=== PATIENT | female | born 1985 | race Caucasian/White ===

== ENCOUNTER 2022-07-01 13:56 | Emergency (ER) | payer SELFPAY ==
--- NOTE | 2022-07-01 14:08 | ED Physician Documentation ---
PD HPI ABD PAIN - Stated complaint Stated Complaint: R LOWER ABD PX - History obtained from History obtained from: Patient - History of Present Illness Timing - onset: How many days ago (05/30) Timing - duration: Days (05/30) Timing - details: Gradual onset, Still present (AndSteadily worsening and considerably increased overnight into this morning. It is still localized in the right lower quadrant.), Constant, Still present in ED. No: Waxing and waning Quality: Aching, Pain Location: RLQ Radiation: No: Chest, Right flank Improved by: Laying still. No: Eating, Vomiting Worsened by: Moving, Palpation. No: Eating, Breathing Associated symptoms: Nausea, Loss of appetite. No: Fever, Vomiting, Diarrhea, Constipation (last BM small but just yesterday.), Dysuria, Chest pain, Vaginal dc Similar symptoms before: Has not had sx before Recently seen: Not recently seen Review of Systems Constitutional: denies: Fever, Chills, Myalgias Nose: denies: Rhinorrhea / runny nose, Congestion Throat: denies: Sore throat Respiratory: denies: Cough GI: reports: Abdominal Pain, Nausea. denies: Vomiting, Constipation, Diarrhea : denies: Dysuria, Frequency, Discharge Skin: denies: Rash Neurologic: denies: Altered mental status, Headache PD PAST MEDICAL HISTORY - Past Medical History Cardiovascular: None Respiratory: None Endocrine/Autoimmune: None : Other (IUD in place for over 5 years) - Past Surgical History Past Surgical History: No - Present Medications Home Medications: Ambulatory Orders Medication Instructions Recorded Confirmed HYDROcod/ACETAM 5/325 [Aurora 5/325] 1 ea PO Q6H PRN #12 tablet 07/01/22 Naproxen 250 mg PO TID 7 Days #20 tablet 07/01/22 Ondansetron Odt [Zofran] 4 mg TL Q6H PRN #10 tablet 07/01/22 cephALEXin [Keflex] 500 mg PO TID #20 cap 07/01/22 metroNIDAZOLE [Flagyl] 250 mg PO Q8H #20 tablet 07/01/22 - Allergies Allergies/Adverse Reactions: Allergies Allergy/AdvReac Type Severity Reaction Status Date / Time Penicillins AdvReac Unknown Verified 07/01/22 14:26 PD ED PE NORMAL - Vitals Vital signs reviewed: Yes - General General: Alert and oriented X 3, Well developed/nourished, Other (appears uncomfortable due to abd pain RLQ. ) - Neck Neck: Supple, no meningeal sign, No adenopathy - Cardiac Cardiac: RRR, No murmur - Respiratory Respiratory: No respiratory distress, Clear bilaterally - Abdomen Abdomen: Normal bowel sounds, Soft, Non distended, No organomegaly, Other (Localized tenderness in the right lower quadrant with guarding and percussion tenderness. Mild referred tenderness from left lower quadrant to the right. No generalized percussion tenderness.) - Female Female : Deferred - Rectal Rectal: Deferred - Back Back: No CVA TTP - Derm Derm: Normal color, No rash Results - Vitals Vitals: Vital Signs - 24 hr 07/01/22 07/01/22 07/01/22 14:16 14:46 17:00 Temperature 36.8 C Heart Rate 88 64 67 Respiratory 18 18 18 Rate Blood Pressure 157/93 H 128/83 H 134/89 H O2 Saturation 100 99 100 Oxygen O2 Source Room air - Labs Labs: Laboratory Tests 07/01/22 07/01/22 07/01/22 14:42 14:42 14:42 WBC 8.3 RBC 4.34 Hgb 13.5 Hct 40.8 MCV 94.0 MCH 31.1 H MCHC 33.1 RDW 11.9 L Plt Count 200 MPV 11.5 H Neut # (Auto) 5.7 Lymph # (Auto) 1.5 [place] # (Auto) 1.0 Eos # (Auto) 0.1 Baso # (Auto) 0.0 Absolute Nucleated RBC 0.00 Nucleated RBC % 0.0 Sodium 135 Potassium 3.8 Chloride 98 L Carbon Dioxide 26 Anion Gap 11.0 BUN 11 Creatinine 0.6 Estimated GFR (MDRD) 114 Glucose 98 Calcium 9.2 Total Bilirubin 1.0 AST 16 ALT 21 Alkaline Phosphatase 50 Total Protein 7.7 Albumin 4.1 Globulin 3.6 Albumin/Globulin Ratio 1.1 Lipase 30 Serum HCG, Qual NEGATIVE Urine Color Urine Clarity Urine pH Ur Specific [place] Urine Protein Urine Glucose (UA) Urine Ketones Urine Occult Blood Urine Nitrite Urine Bilirubin Urine Urobilinogen Ur Leukocyte Esterase Urine RBC Urine WBC Ur Squamous Epith Cells Urine Bacteria Urine Mucus Ur Microscopic Review Urine Culture Comments 07/01/22 15:25 WBC RBC Hgb Hct MCV MCH MCHC RDW Plt Count MPV Neut # (Auto) Lymph # (Auto) [place] # (Auto) Eos # (Auto) Baso # (Auto) Absolute Nucleated RBC Nucleated RBC % Sodium Potassium Chloride Carbon Dioxide Anion Gap BUN Creatinine Estimated GFR (MDRD) Glucose Calcium Total Bilirubin AST ALT Alkaline Phosphatase Total Protein Albumin Globulin Albumin/Globulin Ratio Lipase Serum HCG, Qual Urine Color YELLOW Urine Clarity HAZY Urine pH 6.0 Ur Specific [place] 1.010 Urine Protein NEGATIVE Urine Glucose (UA) NEGATIVE Urine Ketones TRACE Urine Occult Blood NEGATIVE Urine Nitrite NEGATIVE Urine Bilirubin NEGATIVE Urine Urobilinogen 0.2 (NORMAL) Ur Leukocyte Esterase TRACE H Urine RBC 0-5 Urine WBC 6-10 H Ur Squamous Epith Cells MOD Squamous H Urine Bacteria Moderate H Urine Mucus Few Strands Ur Microscopic Review INDICATED Urine Culture Comments NOT INDICATED - Rads (name of study) abd/pelvic cT Radiology: Prelim report reviewed (cecal diverticulitis without abscess nor perforation. Appendix seen separately and normal. ), EMP read indepedently, See rad report PD Medical Decision Making - ED course Complexity details: reviewed results (There is definite focal area of inflammation RLQ at cecum. Radiology report diagnosis this as cecal diverticulitis and the appendix is seen separately and is normal. ), re- evaluated patient (the patient is more comfortable after meds. Not vomiting. Uncomplicated diverticulitis but with significant inflammation around it, supporting more likely infectious and not just inflammatory. Will rx with antibiotics as well as anti-inflammatories. Patient comfortable with discharge home. ), considered differential (exam very cocnerning for appendicitis. She does not seem too ill though. Can get labs and UA. discussed with patient U/S versus Ct and opted for CT as more likely intra-abdominal process. ), d/w patient Reviewed Lab Results: WBC is in normal range. HCG negative. UA normal. CT showing IUD in place. So does not seem cause. There is definite area of inflammation and swelling of cecal area. No free fluid. Drug Therapy Requiring Monitoring for Toxicity: iv pain meds of toradol and dilaudid. Sfter CT results, also given iv antibiotics to initiate therapy, given the steady worsening of symptoms, i felt it approrpiriate to give antibiotics and pain meds. ED course: she was given IV fluids and meds and was more comfortable regarding the pain. given IV toradol and pain meds without side effects. Departure - Departure Disposition: 01 Home, Self Care Clinical Impression: Cecal diverticulitis Condition: Stable Record reviewed to determine appropriate education?: Yes Instructions: ED Diverticulitis Prescriptions: metroNIDAZOLE [Flagyl] 250 mg PO Q8H #20 tablet cephALEXin [Keflex] 500 mg PO TID #20 cap Naproxen 250 mg PO TID 7 Days #20 tablet HYDROcod/ACETAM 5/325 [Aurora 5/325] 1 ea PO Q6H PRN #12 tablet PRN Reason: Pain Ondansetron Odt [Zofran] 4 mg TL Q6H PRN #10 tablet PRN Reason: Nausea / Vomiting Comments: Your CT scan shows acute diverticulitis of the cecum. The radiologist says your appendix appears normal. We would treat this with oral antibiotics of cephalexin and metronidazole. Also anti-inflammatories of naproxen 3 times daily for a week. Stay well-hydrated. Tylenol if needed for fevers or pain. Add hydrocodone if needed for worse pain. Ondansetron if needed for nausea. I would anticipate improvement over the next several days and resolution over 3 to 5 days or so. Recheck if not improving during that timeframe and return if worse. I sent your prescriptions to the [facility] pharmacy in [place]. I am prescribing a short course of narcotic pain medication for you. These are potentially dangerous and addictive medications that should be used carefully. These medications may constipate you. Take an [id number] stool softener such as docusate twice daily with plenty of water while taking these medications. If you go 24 hours without a bowel movement, take [id number] MiraLAX, per package instructions. Do not drink or drive while taking these medications. If you received narcotic or sedating medications while in the emergency department do not drive for 24 hours. Store this medication in a safe, secure place and out of reach of children. It is a violation of federal law to give or sell this medication to another person or to use in a manner other than prescribed. The ED will not refill narcotic prescriptions, including prescriptions lost or stolen. You can dispose of unwanted medications at the [facility]'s office or at several pharmacies such as [facility]. Discharge Date/Time: 07/01/22 18:00
[2022-07-01] MEDS ORDERED: SODIUM CHLORIDE 0.9% 1,000 ML IV STA (14:24)
[2022-07-01] MEDS ORDERED: KETOROLAC 15 MG/ML VIAL IVP STA (14:24)
[2022-07-01 14:56] LABS: BASOPHILS % (AUTO) 0.5 %; EOSINOPHILS # (AUTO) 0.1 10^3/uL (0.0-0.7); EOSINOPHILS % (AUTO) 1.7 %; HCT - HEMATOCRIT 40.8 % (37.0-47.0); HGB - HEMOGLOBIN 13.5 g/dL (12.0-16.0); LYMPHOCYTES # (AUTO) 1.5 10^3/uL (1.5-3.5); LYMPHOCYTES % (AUTO) 17.5 %; MEAN CORPUSCULAR HEMOGLOBIN 31.1 pg (27.0-31.0); MEAN CORPUSCULAR HGB CONC 33.1 g/dL (32.0-36.0); MEAN PLATELET VOLUME 11.5 fL (7.9-10.8); MONOCYTES % (AUTO) 11.5 %; NEUTROPHILS # (AUTO) 5.7 10^3/uL (1.5-6.6); NEUTROPHILS % (AUTO) 68.7 %; PLT - PLATELET COUNT 200 10^3/uL (130-450); RED BLOOD COUNT 4.34 10^6/uL (4.20-5.40); RED CELL DISTRIBUTION WIDTH 11.9 % (12.0-15.0); WHITE BLOOD COUNT 8.3 x10^3/uL (4.8-10.8)
[2022-07-01 15:13] LABS: ALBUMIN 4.1 g/dL (3.2-5.5); ALBUMIN/GLOBULIN RATIO 1.1 (1.0-2.2); CALCIUM 9.2 mg/dL (8.5-10.3); CREATININE 0.6 mg/dL (0.4-1.0); POTASSIUM 3.8 mmol/L (3.5-5.0); TOTAL PROTEIN 7.7 g/dL (6.7-8.2)
[2022-07-01 15:21] LABS: HCG,QUALITATIVE BLOOD NEGATIVE
[2022-07-01 15:31] LABS: BILIRUBIN,URINE NEGATIVE (NEGATIVE); GLUCOSE, URINE (UA) NEGATIVE (NEGATIVE); KETONES,URINE (UA) TRACE mg/dL (NEGATIVE); LEUKOCYTE ESTERASE, URINE TRACE (NEGATIVE); NITRITE,URINE NEGATIVE (NEGATIVE); OCCULT BLOOD,URINE NEGATIVE (NEGATIVE); PROTEIN,URINE NEGATIVE (NEGATIVE); UROBILINOGEN,URINE 0.2 (NORMAL) E.U./dL (NORMAL)
[2022-07-01 15:32] LABS: CLARITY,URINE HAZY (CLEAR)
[2022-07-01 15:45] LABS: BACTERIA,URINE Moderate /HPF (None Seen); MUCUS,URINE Few Strands; RBC,URINE 0-5 /HPF (0-5); SQUAMOUS EPITHELIAL CELL,UR MOD Squamous (<= Few)
[2022-07-01] MEDS ORDERED: iohexoL-300 100 ML VIAL ONE (16:10)
--- NOTE | 2022-07-01 16:19 | CT Report ---
PROCEDURE: ABDOMEN/PELVIS W INDICATIONS: RLQ x 2 days, worsening CONTRAST: 100ml omni 300 TECHNIQUE: After the administration of IV contrast, 5 mm thick sections acquired from the diaphragms to the symp hysis. 5 mm thick coronal and sagittal reformats were acquired. For radiation dose reduction, the f ollowing was used: automated exposure control, adjustment of mA and/or kV according to patient size. COMPARISON: None. FINDINGS: Image quality: Excellent. ABDOMEN: Lung bases: Lung bases are clear. Heart size is normal. Solid organs: Liver is mildly enlarged measuring 21.0 cm in steatosis. The spleen is normal in size and enhancement. Gallbladder is unremarkable Biliary system is non dilated. Pancreas enhances norm ally. No adrenal nodules. Kidneys demonstrate normal size and enhancement, without hydronephrosis. Peritoneum and bowel: Bowel loops are nonobstructed. There is marked thickening and inflammatory nicholas nge identified within the cecum. Scattered diverticula are present. Appendix is normal. No free fluid or air. Nodes and vessels: No retroperitoneal or mesenteric adenopathy by size criteria. Aorta and inferior vena cava are normal in size. Miscellaneous: No ventral hernias. PELVIS: Genitourinary: Bladder wall thickness is normal. IUD is incidentally noted. Miscellaneous: No inguinal hernias or adenopathy. Bones: No suspicious bony lesions. No vertebral body compression fractures. IMPRESSION: Marked inflammatory change with thickening and diverticula in the cecum most suggestive of focal coli tis secondary to diverticulitis. Appendix is normal. Reviewed by: Teri Jones MD on 07/01/2022 4:17 PM PST Approved by: Teri Jones MD on 07/01/2022 4:17 PM PST Station ID: [id number]
[2022-07-01] MEDS ORDERED: cefTRIAXone 1 GM VIAL IVP STA (16:45)
[2022-07-01] MEDS ORDERED: HYDROmorphone 0.5 MG/0.5 ML SYRINGE IVP STA (16:46)
[2022-07-01] MEDS ORDERED: metroNIDAZOLE 250 MG TABLET PO STA (16:46)
[2022-07-01 17:01] VITALS: BP 134/89
[2022-07-01] MEDS ORDERED: iohexoL-300 100 ML VIAL IVP ONE (19:27)
== END 2022-07-01 18:00 | disposition home or self-care (01) ==
LOC: ED 13:56
DX: K57.32 Diverticulitis of large intestine without perforation or abscess without bleeding (principal)
CPT/HCPCS: 36415; 74177; 80053; 81001; 83690; 84703; 85025; 96361; 96374; 96375; 99284; 99285; A9270; J1170; Q9967; 81003; 87086

== ENCOUNTER 2022-07-14 20:36 | Emergency (ER) | payer SELFPAY ==
[2022-07-14] MEDS ORDERED: SODIUM CHLORIDE 0.9% 1,000 ML IV STA (21:10)
[2022-07-14] MEDS ORDERED: HYDROmorphone 1 MG/ML CARPUJECT IVP STA (21:10)
--- NOTE | 2022-07-14 21:14 | ED Physician Documentation ---
PD HPI ABD PAIN - Stated complaint Stated Complaint: ABD PX - Chief complaint Chief Complaint: Abd Pain - History obtained from History obtained from: Patient - Additional information Additional information: The patient comes to the emergency department chief complaint of right lower quadrant abdominal pain that started suddenly this afternoon. She states that she had been feeling better for a number of days after being diagnosed with diverticulitis on July 01. However, she had realized after completing her course of Keflex that after probably couple of days of taking her metronidazole, she had accidentally started taking naproxen instead of the metronidazole. She did not realize until the end of the course of Keflex that the other bottle actually said naproxen and not metronidazole. She was able to find her metronidazole and took 3 doses today. She states that she has not been nauseated or vomiting. No change in her stools other than she did notice the somewhat dark stool today. She denies any upper abdominal pain. No fevers or chills. No urinary symptoms. She has no history of kidney stones. No surgical history to the abdomen. She states she is not sexually active and is quite sure she is not . She denies any other complaints at this time. She does note that movement causes the area to hurt more. She states her last dose of naproxen was several days ago. PD PAST MEDICAL HISTORY - Past Medical History Cardiovascular: None Respiratory: None Endocrine/Autoimmune: None : Other (IUD in place for over 5 years) - Past Surgical History Past Surgical History: No - Present Medications Home Medications: Ambulatory Orders Medication Instructions Recorded Confirmed HYDROcod/ACETAM 5/325 [[place] 5/325] 1 ea PO Q6H PRN #12 tablet 07/01/22 Naproxen 250 mg PO TID 7 Days #20 tablet 07/01/22 Ondansetron Odt [Zofran] 4 mg TL Q6H PRN #10 tablet 07/01/22 cephALEXin [Keflex] 500 mg PO TID #20 cap 07/01/22 metroNIDAZOLE [Flagyl] 250 mg PO Q8H #20 tablet 07/01/22 Ondansetron Odt [Zofran] 4 mg TL Q6H PRN #10 tablet 07/15/22 Oxycodone HCl/Acetaminophen 1 - 2 each PO Q4HR PRN #20 tablet 07/15/22 [Percocet 5-325 mg Tablet] levoFLOXacin [Levaquin] 500 mg PO QD #28 tablet 07/15/22 metroNIDAZOLE [Flagyl] 500 mg PO BID 7 Days #14 tablet 07/15/22 polyethylene glycoL 3350 [Miralax] 17 gm PO DAILY PRN #1 each 07/15/22 - Allergies Allergies/Adverse Reactions: Allergies Allergy/AdvReac Type Severity Reaction Status Date / Time Penicillins AdvReac Unknown Verified 07/01/22 14:26 - Social History Does the pt smoke?: No Smoking Status: Never smoker - POLST Patient has POLST: No PD ED PE NORMAL - Vitals Vital signs reviewed: Yes - General General: Alert and oriented X 3, No acute distress, Well developed/nourished - HEENT HEENT: Atraumatic, PERRL, EOMI, Moist mucous membranes - Neck Neck: Supple, no meningeal sign - Cardiac Cardiac: RRR, No murmur, Strong equal pulses - Respiratory Respiratory: No respiratory distress, Clear bilaterally - Abdomen Abdomen: Soft, Non distended, Other (Moderate right lower quadrant tenderness and mild right upper quadrant and left lower quadrant tenderness. No rebound or guarding.) - Derm Derm: Normal color, Warm and dry, No rash - Extremities Extremities: No deformity, No edema - Neuro Neuro: Alert and oriented X 3 - Psych Psych: Normal mood, Normal affect Results - Vitals Vitals: Vital Signs - 24 hr 07/14/22 07/14/22 07/14/22 20:43 21:00 23:00 Temperature 36.8 C Heart Rate 96 77 70 Respiratory 17 15 16 Rate Blood Pressure 131/83 H 133/84 H 135/83 H O2 Saturation 96 98 99 07/15/22 00:41 Temperature 36.5 C Heart Rate 88 Respiratory 15 Rate Blood Pressure 131/77 H O2 Saturation 95 Oxygen O2 Source Room air - Labs Labs: Laboratory Tests 07/14/22 07/14/22 07/14/22 21:19 21:19 21:19 WBC 22.3 H RBC 4.70 Hgb 14.5 Hct 42.8 MCV 91.1 MCH 30.9 MCHC 33.9 RDW 12.5 Plt Count 346 MPV 9.8 Neut # (Auto) Not Reportable Lymph # (Auto) Not Reportable [place] # (Auto) Not Reportable Eos # (Auto) Not Reportable Baso # (Auto) Not Reportable Absolute Nucleated RBC Not Reportable Total Counted 100 Band Neuts % (Manual) 8 Abnorm Lymph % (Manual) 0 Nucleated RBC % Not Reportable Neutrophils # (Manual) 19.8 H Lymphocytes # (Manual) 1.6 Monocytes # (Manual) 0.7 Eosinophils # (Manual) 0.2 Basophils # (Manual) 0.0 Differential Comment MANUAL DIFFERENTIAL WBC Morphology 1+ TOXIC GRANULATION Platelet Estimate NORMAL (130-450,000) RBC Morph Micro Appear NORMAL APPEARANCE Sodium 130 L Potassium 3.5 Chloride 95 L Carbon Dioxide 21 Anion Gap 14.0 H BUN 27 H Creatinine 0.6 Estimated GFR (MDRD) 114 Glucose 94 Calcium 9.0 Total Bilirubin 0.6 AST 24 ALT 68 H Alkaline Phosphatase 49 Total Protein 7.8 Albumin 4.1 Globulin 3.7 Albumin/Globulin Ratio 1.1 Lipase 30 Serum HCG, Qual NEGATIVE Urine Color Urine Clarity Urine pH Ur Specific [place] Urine Protein Urine Glucose (UA) Urine Ketones Urine Occult Blood Urine Nitrite Urine Bilirubin Urine Urobilinogen Ur Leukocyte Esterase Ur Microscopic Review Urine Culture Comments 07/14/22 21:57 WBC RBC Hgb Hct MCV MCH MCHC RDW Plt Count MPV Neut # (Auto) Lymph # (Auto) [place] # (Auto) Eos # (Auto) Baso # (Auto) Absolute Nucleated RBC Total Counted Band Neuts % (Manual) Abnorm Lymph % (Manual) Nucleated RBC % Neutrophils # (Manual) Lymphocytes # (Manual) Monocytes # (Manual) Eosinophils # (Manual) Basophils # (Manual) Differential Comment WBC Morphology Platelet Estimate RBC Morph Micro Appear Sodium Potassium Chloride Carbon Dioxide Anion Gap BUN Creatinine Estimated GFR (MDRD) Glucose Calcium Total Bilirubin AST ALT Alkaline Phosphatase Total Protein Albumin Globulin Albumin/Globulin Ratio Lipase Serum HCG, Qual Urine Color YELLOW Urine Clarity CLEAR Urine pH 6.0 Ur Specific [place] 1.020 Urine Protein NEGATIVE Urine Glucose (UA) NEGATIVE Urine Ketones 40 H Urine Occult Blood NEGATIVE Urine Nitrite NEGATIVE Urine Bilirubin NEGATIVE Urine Urobilinogen 0.2 (NORMAL) Ur Leukocyte Esterase NEGATIVE Ur Microscopic Review NOT INDICATED Urine Culture Comments NOT INDICATED - Rads (name of study) CT abdomen pelvis Radiology: Final report received, See rad report (Inflammation in right lower quadrant consistent with diverticulitis. Very small, contained perforation noted.) PD Medical Decision Making - ED course Complexity details: reviewed results, re-evaluated patient, considered differential, d/w patient ED course: The patient was treated symptomatically with IV fluids and a dose of Dilaudid, and worked up with laboratory studies and ultimately, and CT scan of the abdomen and pelvis. Labs included a CBC, ER abdominal panel, test, and urinalysis, all of which were ordered and reviewed by me. The CBC showed a significantly elevated white blood cell count at 22.8. The remainder of the patient's labs and urinalysis were unremarkable. Her CT scan did show the persistence of diverticulitis, now with a tiny, contained perforation. I spoke by phone with Dr. Man of general surgery to determine the best course of action. He stated that this would generally be expected to do well with the proper antibiotic course, taken properly, and that neither surgical intervention nor inpatient admission were necessarily indicated at this point in time. The course he recommended was Levaquin and Flagyl together for 2 weeks. The patient had already taken 3 doses of Flagyl today, so I did not give her more in the emergency department. She was given a dose of Levaquin here and I did discuss with her the extreme importance of making sure she is on her antibiotics properly this time. I have advised her to take the entire course, as directed, until complete. Dr. Man has recommended that the patient have a colonoscopy in 6 weeks, given her young age and somewhat less common situation of developing diverticulitis. The patient states she does not have a primary care physician, so I have given her Dr. Balbuena, who is on her ER follow-up schedule for today's date. I have also given her the clinic numbers for Dr. Man and for our surgery clinic with Dr. Henderson. I have encouraged the patient to call primary care immediately and let them know she was in the emergency department and needs to establish care and get a referral for surgery follow-up. Patient has expressed understanding. I have sent all her prescriptions to the [facility] pharmacy in [place] and have included an analgesic, antiemetic, and stool softener. We have discussed the usual indications for return. Departure - Departure Disposition: 01 Home, Self Care Clinical Impression: Cecal diverticulitis Condition: Stable Instructions: ED Diverticulitis Follow-Up: Matt Man MD [Provider Admit Priv/Credential] - Alem Henderson MD [Provider Admit Priv/Credential] - Marin Balbuena MD [Provider Admit Priv/Credential] - Prescriptions: Oxycodone HCl/Acetaminophen [Percocet 5-325 mg Tablet] 1 - 2 each PO Q4HR PRN #20 tablet PRN Reason: pain metroNIDAZOLE [Flagyl] 500 mg PO BID 7 Days #14 tablet levoFLOXacin [Levaquin] 500 mg PO QD #28 tablet polyethylene glycoL 3350 [Miralax] 17 gm PO DAILY PRN #1 each PRN Reason: Constipation Ondansetron Odt [Zofran] 4 mg TL Q6H PRN #10 tablet PRN Reason: Nausea / Vomiting Comments: Your CT scan showed that the diverticulitis is still present and there is a very small, it contained area of perforation. Because of this, your case has been discussed with the on-call surgeon, Dr. Man, who says that at this point, because you whether why is are stable and the perforations very tiny, the diverticulitis can still be treated with oral antibiotics as an outpatient. However, he does feel that you should be on a different antibiotic than the Keflex, in combination with the Flagyl/metronidazole. We will put you on a 2- week course of both of these antibiotics, and they should be taken until the course is complete. You have already had enough metronidazole for the day, but we have given you a dose of Levaquin, the other antibiotic, here in the emergency department. I have sent prescriptions for these, as well as medication for pain, nausea, and stool softening, electronically to the [facility] pharmacy in [place]. Please pick the medications up tomorrow so that you can stay on your antibiotic regimen without interruption. If you notice that your pain is significantly worsening and/or you are developing high fevers, please return to the emergency department. Otherwise, it will most likely be several days before you begin to notice a significant difference in your pain and your symptoms, and it will just take some time for all of this to get better. Dr. Man has recommended that you follow-up in 6 weeks for a colonoscopy, given the less common incidence of diverticulitis in people of your younger age category. He would prefer that you go through primary doctor for referral, as this makes the insurance situation easier; however, try to at least get state insurance and call his office to see if you can be seen anyway. In the meantime, please make an appointment to follow-up with a primary care physician to get established for general care, and for referral, should you need it. Dr. Balbuena is the primary doctor who is on schedule for ER follow-up patients. When you call his office to make a follow-up appointment, please let them know that you were just seen in the emergency department and need to establish care and get a referral for surgical follow-up. Discharge Date/Time: 07/15/22 00:43
[2022-07-14 21:26] LABS: BASOPHILS % (AUTO) 0.2 %; EOSINOPHILS % (AUTO) 0.1 %; HCT - HEMATOCRIT 42.8 % (37.0-47.0); HGB - HEMOGLOBIN 14.5 g/dL (12.0-16.0); LYMPHOCYTES % (AUTO) 6.9 %; MEAN CORPUSCULAR HEMOGLOBIN 30.9 pg (27.0-31.0); MEAN CORPUSCULAR HGB CONC 33.9 g/dL (32.0-36.0); MEAN CORPUSCULAR VOLUME 91.1 fL (81.0-99.0); MEAN PLATELET VOLUME 9.8 fL (7.9-10.8); MONOCYTES % (AUTO) 2.6 %; NEUTROPHILS % (AUTO) 89.8 %; PLT - PLATELET COUNT 346 10^3/uL (130-450); RED CELL DISTRIBUTION WIDTH 12.5 % (12.0-15.0); WHITE BLOOD COUNT 22.3 x10^3/uL (4.8-10.8)
[2022-07-14 21:32] LABS: ABNORMAL LYMPHS % (MANUAL) 0 %
[2022-07-14 21:49] LABS: BAND NEUTROPHILS % (MANUAL) 8 %; DIFFERENTIAL COMMENT MANUAL DIFFERENTIAL; EOSINOPHILS # (MANUAL) 0.2 10^3/uL (0-0.7); LYMPHOCYTES # (MANUAL) 1.6 10^3/uL (1.5-3.5); LYMPHOCYTES % (MANUAL) 7 %; MONOCYTES # (MANUAL) 0.7 10^3/uL (0.0-1.0); NEUTROPHILS # (MANUAL) 19.8 10^3/uL (1.5-6.6); PLATELET ESTIMATE, MANUAL NORMAL (130-450,000) (NORMAL); RBC MORPHOLOGY (MULTIPLE) NORMAL APPEARANCE (NORMAL); WBC MORPHOLOGY (MULTIPLE) 1+ TOXIC GRANULATION (NORMAL)
[2022-07-14 21:51] LABS: HCG,QUALITATIVE BLOOD NEGATIVE
[2022-07-14 22:10] LABS: BILIRUBIN,URINE NEGATIVE (NEGATIVE); GLUCOSE, URINE (UA) NEGATIVE (NEGATIVE); KETONES,URINE (UA) 40 mg/dL (NEGATIVE); LEUKOCYTE ESTERASE, URINE NEGATIVE (NEGATIVE); NITRITE,URINE NEGATIVE (NEGATIVE); OCCULT BLOOD,URINE NEGATIVE (NEGATIVE); PROTEIN,URINE NEGATIVE (NEGATIVE); UROBILINOGEN,URINE 0.2 (NORMAL) E.U./dL (NORMAL)
[2022-07-14 22:11] LABS: ALBUMIN 4.1 g/dL (3.2-5.5); ALBUMIN/GLOBULIN RATIO 1.1 (1.0-2.2); BILIRUBIN,TOTAL 0.6 mg/dL (0.2-1.0); CREATININE 0.6 mg/dL (0.4-1.0); POTASSIUM 3.5 mmol/L (3.5-5.0); TOTAL PROTEIN 7.8 g/dL (6.7-8.2)
[2022-07-14 22:11] LABS: CLARITY,URINE CLEAR (CLEAR)
[2022-07-14] MEDS ORDERED: iohexoL-300 100 ML VIAL ONE (22:13)
[2022-07-14] MEDS ORDERED: iohexoL-300 100 ML VIAL IVP ONE (22:49)
--- NOTE | 2022-07-14 23:44 | CT Report ---
PROCEDURE: ABDOMEN/PELVIS W INDICATIONS: RLQ pain, incompl. treated diverticulitis recently CONTRAST: Omni 300 100ml TECHNIQUE: After the administration of IV contrast, 5 mm thick sections acquired from the diaphragms to the symp hysis. 5 mm thick coronal and sagittal reformats were acquired. For radiation dose reduction, the f ollowing was used: automated exposure control, adjustment of mA and/or kV according to patient size. COMPARISON: 07/01/2022 FINDINGS: Image quality: Excellent. ABDOMEN: Lung bases: Lung bases are clear. Heart size is normal. Solid organs: Liver and spleen are normal in size and enhancement. Gallbladder is normal. Biliary system is non dilated. Pancreas enhances normally. No adrenal nodules. Kidneys demonstrate normal size and enhancement, without hydronephrosis. Peritoneum and bowel: Moderate inflammatory changes in the cecum and proximal ascending colon and a few small foci of extraluminal gas present within the area of fat stranding, series 3 image 60. A nor mal appendix is present. Stomach and small bowel loops are within normal limits. Trace free fluid in the cul-de-sac. No focal fluid collections. No anterior or free air. Nodes and vessels: No retroperitoneal or mesenteric adenopathy by size criteria. Aorta and inferior vena cava are normal in size. Miscellaneous: No ventral hernias. PELVIS: Genitourinary: Bladder wall thickness is normal. IUD present in the anteverted uterus. Ovaries have a normal CT appearance. Miscellaneous: No inguinal hernias or adenopathy. Bones: No suspicious bony lesions. No vertebral body compression fractures. IMPRESSION: 1. There is persistent inflammation around the cecum and proximal colon consistent with ongoing acute diverticulitis. There is now evidence of a tiny contained perforation. 2. Normal appendix. 3. Trace fluid in the cul-de-sac. No abscess. Reviewed by: Brooke Crowley MD on 07/14/2022 11:54 PM PST Approved by: Brooke Crowley MD on 07/14/2022 11:54 PM PST Station ID: [id number]
[2022-07-15] MEDS ORDERED: levoFLOXacin 250 MG TABLET PO STA (00:04)
[2022-07-15] MEDS ORDERED: HYDROmorphone 1 MG/ML CARPUJECT IVP STA (00:12)
[2022-07-15] MEDS ORDERED: HYDROcod/ACET 5/325 Prepack 4 PO STA (00:30)
[2022-07-15 00:43] VITALS: BP 131/77
--- NOTE | 2022-07-15 10:22 | ED Physician Documentation ---
ED Addendum - Addendum Addendum: 07/15/22 10:21 Apparently the prescriptions were not transmitted electronically at the time of discharge, the patient called stating that the pharmacy did not have the prescriptions. Therefore the prescriptions were retransmitted this morning. The narcotic prescription had to be canceled and reordered under my name. Departure - Departure Disposition: 01 Home, Self Care Clinical Impression: Cecal diverticulitis Condition: Stable Instructions: ED Diverticulitis Follow-Up: Marin Balbuena MD [Provider Admit Priv/Credential] - Alme Henderson MD [Provider Admit Priv/Credential] - Matt Man MD [Provider Admit Priv/Credential] - Prescriptions: metroNIDAZOLE [Flagyl] 500 mg PO BID 7 Days #14 tablet levoFLOXacin [Levaquin] 500 mg PO QD #28 tablet polyethylene glycoL 3350 [Miralax] 17 gm PO DAILY PRN #1 each PRN Reason: Constipation Oxycodone HCl/Acetaminophen [Percocet 5-325 mg Tablet] 1 - 2 each PO Q6H PRN #14 tablet MDD 6 tabs PRN Reason: pain Ondansetron Odt [Zofran] 4 mg TL Q6H PRN #10 tablet PRN Reason: Nausea / Vomiting Comments: Your CT scan showed that the diverticulitis is still present and there is a very small, it contained area of perforation. Because of this, your case has been discussed with the on-call surgeon, Dr. Man, who says that at this point, because you whether why is are stable and the perforations very tiny, the diverticulitis can still be treated with oral antibiotics as an outpatient. However, he does feel that you should be on a different antibiotic than the Keflex, in combination with the Flagyl/metronidazole. We will put you on a 2- week course of both of these antibiotics, and they should be taken until the course is complete. You have already had enough metronidazole for the day, but we have given you a dose of Levaquin, the other antibiotic, here in the emergency department. I have sent prescriptions for these, as well as medication for pain, nausea, and stool softening, electronically to the [facility] pharmacy in [place]. Please pick the medications up tomorrow so that you can stay on your antibiotic regimen without interruption. If you notice that your pain is significantly worsening and/or you are developing high fevers, please return to the emergency department. Otherwise, it will most likely be several days before you begin to notice a significant difference in your pain and your symptoms, and it will just take some time for all of this to get better. Dr. Doug kwok has recommended that you follow-up in 6 weeks for a colonoscopy, given the less common incidence of diverticulitis in people of your younger age category. He would prefer that you go through primary doctor for referral, as this makes the insurance situation easier; however, try to at least get state insurance and call his office to see if you can be seen anyway. In the meantime, please make an appointment to follow-up with a primary care physician to get established for general care, and for referral, should you need it. Dr. Balbuena is the primary doctor who is on schedule for ER follow-up patients. When you call his office to make a follow-up appointment, please let them know that you were just seen in the emergency department and need to establish care and get a referral for surgical follow-up. Discharge Date/Time: 07/15/22 00:43
== END 2022-07-15 00:43 | disposition home or self-care (01) ==
LOC: ED 20:36
DX: K57.20 Diverticulitis of large intestine with perforation and abscess without bleeding (principal)
CPT/HCPCS: 36415; 74177; 80053; 81003; 83690; 84703; 85025; 96374; 96376; 99284; 99285; A9270; J1170; Q9967; 81001; 87086